=== PATIENT | female | born 1940 | race Caucasian/White ===

== ENCOUNTER → 2017-03-24 | Outpatient (CLI) | payer OTHER | LOC: PHRSP 07:16 | DX: J43.9 Emphysema, unspecified (principal) | CPT/HCPCS: 94060; 94726; 94729 ==

== ENCOUNTER 2017-04-15 05:33 | Inpatient (IN) | payer OTHER, MEDICARE ==
[~2017-04-15] VITALS: Ht 162.6 cm; Wt 50.0 kg
[2017-04-15] VITALS (12 sets, daily range): BP systolic 103–129; BP diastolic 58–61; PULSE 70–90; RESP 14–16; TEMP 98–98.9; O2SAT 95–99
[~2017-04-15 05:33] MED LIST: AMLO2.5T PO; ATEN25TA PO; ATOR10TA15 PO; LEVO75TA3 PO
[2017-04-15] MEDS ORDERED: SODIUM CHLORID 0.9% 500 ML IV PRN (06:15)
[2017-04-15] MEDS ORDERED: POVIDONE IODINE 5% (ANTISEPSIS KIT) 4 APPLICATIONS EACH NARE PRN (06:15)
[2017-04-15] MEDS ORDERED: CHLORHEXIDINE GLUCONATE 2 % 1 PACK (2 CLOTHS) TOPICAL PRN (06:15)
[2017-04-15] MEDS ORDERED: METOPROLOL TARTRATE 25 MG TAB PO PRN (06:15)
[2017-04-15] MEDS: LACTATED RINGER'S 1000 ML IV PRN ×2 (06:35→11:25)
[2017-04-15] MEDS ORDERED: VANCOMYCIN HCL 1000 MG VIAL ONE (07:31)
[2017-04-15] MEDS ORDERED: BUPIVACAINE LIPOSO PF 1.3% INJ 20 ML, DEXAMETHASONE INJ 4 MG, MORPHINE INJ 8 MG in SODI... IRRIGATION SCH (07:45)
[2017-04-15] MEDS ORDERED: NALOXONE HCL 0.4 MG/ML AMP IV PUSH PRN (11:00)
[2017-04-15] MEDS ORDERED: SODIUM CHLORIDE 0.9% FLUSH 10 ML FLUSH IV FLUSH PRN (11:00)
[2017-04-15] MEDS ORDERED: Post-op Orders (for Pharmacy) OTHER ONE (11:00)
[2017-04-15] MEDS ORDERED: RESP: ALBUTEROL 2.5 MG/3 ML NEB (PRN) NEB (11:00)
[2017-04-15] MEDS ORDERED: ACETAMINOPHEN 325 MG TAB PO PRN (11:00)
[2017-04-15] MEDS ORDERED: MAGNESIUM HYDROXIDE SUSP 30 ML CUP PO PRN (11:00)
[2017-04-15] MEDS ORDERED: MORPHINE SULFATE 30 MG/30 ML PCA IV SCH (11:00)
--- NOTE | 2017-04-15 11:08 | PD.OP ---
cc: Audra Barrow MD; Sacha Whitney MD Operative Report Date of Surgery: Apr 15, 2017 Preoperative Diagnosis: Postoperative Diagnosis: Procedure: 1. Right Video Assisted Thoracoscopsy (VATS) 2. Wedge Resection RUL Nodule 3. Right Posterolateral Muscle Sparing Thoracotomy 4. Right Upper Lobectomy 5. Mediastinal Lymph Node Dissection 6. Lysis of Adhesions 7. Intercostal Nerve Block . Surgeon: Audra Barrow Chip Mixer(s): Arjun Wood Operation and Findings: PREOPERATIVE DIAGNOSIS 1. Right Lung Nodule 2. COPD 3. Chronic Kidney Disease 4. Chronic Nicotine Use POSTOPERATIVE DIAGNOSIS 1. Right Upper Lobe Lung Nodule Suspicious for Cancer 2. COPD 3. Chronic Kidney Disease 4.Adhesions PROCEDURES 1. Right Video Assisted Thoracoscopsy (VATS) 2. Wedge Resection RUL Nodule 3. Right Posterolateral Muscle Sparing Thoracotomy 4. Right Upper Lobectomy 5. Mediastinal Lymph Node Dissection 6. Lysis of Adhesions 7. Intercostal Nerve Block SURGEON Audra Barrow MD WATER POLLUTION CONTROL INSPECTOR Debbie Wood PA-C ANESTHESIA General double-lumen endotracheal. HOUSECALLS NURSE WESLEY Banks MD DRAINS [address] COUNTS Needle, sponge, and instrument counts were correct. COMPLICATIONS None. INDICATION FOR PROCEDURE The patient is a 77 yo lady with right upper lung PET-positive lesion presenting for surgical resection of above pathology. DESCRIPTION OF PROCEDURE The patient was brought to the operating suite and placed in supine position. Following satisfactory induction of general double-lumen endotracheal anesthesia , the patient was placed in the left lateral decubitus position. The right chest and surrounding area was then prepped and draped in the usual sterile fashion. A 5 mm port was placed in the mid-axillary line 6th ICS. Two additional ports, one anterior and one posterior were placed. The RUL had adhesions to the apex and mediastinum which were divided sharply and the lung freed. A wedge resection of the upper lobe was performed incorporating the lesion and sent for histological analysis. Frozen section was suspicious but not confirmatory of an underlying malignancy. Given this, plans were made to proceed with a formal upper lobectomy. The ports were removed and the three incisions connected. A standard muscle-sparing posterolateral thoracotomy was performed and the serratus anterior muscle spared. The pleural space was entered. The inferior pulmonary ligament was divided. The pulmonary arterial supply to the upper lobe was identified, dissected free and divided as was the pulmonary venous supply. The bronchus was then dissected free, clamped and the remaining lung was insufflated without any difficulty. Lymph node dissections of level 3, 4, 7, 9 and 10 were performed along with the course of this removal. Some of these were retained with the specimen. Specimen was removed from the chest. The remaining lung was submerged under sterile water and inflated. No air leaks were identified. At this point the closure was undertaken. A [place] chest tube was placed. Intercostal nerve block was performed at the level of the incision and 3 rib spaces above and below using Exparel with Decadron solution. The pericostal space was approximated with interrupted #1 Vicryl sutures in a pericostal fashion. The serratus fascia and Latissimus dorsi were closed with running 0-Vicryl and the remaining wounds closed with 3-0, and 4-0 Monocryl. The patient tolerated the procedure well and postoperatively went to the PACU in stable condition. Audra Barrow MD Apr 15, 2017 11:08
[2017-04-15] MEDS ORDERED: *RESP: ALBUTEROL 2.5 MG/3 ML NEB (PRN) PERIprocedural Use ONLY NEB ONE (11:35)
[2017-04-15] MEDS ORDERED: fentaNYL CITRATE 1000 MCG/20 ML VIAL ONE (11:52)
[2017-04-15] MEDS ORDERED: MIDAZOLAM HCL 2 MG/2 ML VIAL ONE (11:52)
[2017-04-15] MEDS ORDERED: NS 500 ML (EXCEL BAG) INJ 500 ML IV ONE (12:00)
[2017-04-15] MEDS ORDERED: ePHEDrine/NS 25 MG/5 ML SYRINGE IV ONE (12:00)
[2017-04-15] MEDS: KETOROLAC TROMETHAMINE 30 MG/ML (IVP) VIAL IV PUSH SCH ×3 (12:00→23:46)
[2017-04-15] MEDS ORDERED: ROCURONIUM INJ 50 MG/5 ML SYRINGE IV PUSH ONE (12:00)
[2017-04-15] MEDS ORDERED: DEXAMETHASONE SOD PHOS 4 MG/ML VIAL IV ONE (12:00)
[2017-04-15] MEDS ORDERED: ONDANSETRON HCL 4 MG/2 ML VIAL IV ONE (12:00)
[2017-04-15] MEDS ORDERED: GLYCOPYRROLATE 1 MG/5 ML SYRINGE IV PUSH ONE (12:00)
[2017-04-15] MEDS ORDERED: PROPOFOL 200 MG/20 ML AMP IV ONE (12:00)
[2017-04-15] MEDS ORDERED: STERILE WATER FOR INJECTION 20 ML VIAL IV ONE (12:00)
[2017-04-15] MEDS ORDERED: NEOSTIGMINE 5 MG/5 ML SYRINGE IV PUSH ONE (12:00)
[2017-04-15] MEDS ORDERED: LACTATED RINGER'S 1000 ML INJ 1,000 ML IV ONE (12:00)
[2017-04-15] MEDS ORDERED: METOPROLOL TARTRATE 5 MG/5 ML VIAL IV ONE (12:00)
[2017-04-15] MEDS: ACETAMINOPHEN 1000 MG/100 ML 100 ML IV SCH ×3 (12:00→23:48)
[2017-04-15] MEDS ORDERED: PHENYLEPH/NS 1000 MCG/10 ML SYR IV ONE (12:00)
[2017-04-15] MEDS ORDERED: NORMOSOL R INJ 1,000 ML IV ONE (12:00)
[2017-04-15] MEDS ORDERED: SUCCINYLCHOLINE CHLORIDE 100 MG/5 ML SYRINGE IV PUSH ONE (12:00)
[2017-04-15] MEDS ORDERED: LIDOCAINE HCL 1% PF 5 ML SYRINGE OTHER ONE (12:00)
[2017-04-15] MEDS ORDERED: SODIUM CHLOR 0.9% 250 ML INJ 250 ML IV ONE (12:00)
--- NOTE | 2017-04-15 12:17 | RADRPT ---
EXAM DATE/TIME: 04/15/2017 11:42 [facility] COMPARISON: CHEST SINGLE AP, February 14, 2016, 10:27. INDICATIONS : S/p right side lobectomy MEDICAL HISTORY : Hypertension. renal insufficiency SURGICAL HISTORY : None. ENCOUNTER: Initial ACUITY: 1 day PAIN SCORE: Non-responsive. LOCATION: Right chest FINDINGS: Right chest drainage tube in place with the tip at the right apex. There is a tiny pneumothorax in la teral apex measuring 4 mm.. Surgical resection of a portion of the posterior right sixth rib. The hea rt is normal size. No focal areas of consolidation seen. There is some mild opacity in the region of the left costophrenic angle suggesting either atelectasis or small pleural effusion. Mild amount subc utaneous emphysema about the right chest wall. CONCLUSION: Postsurgical changes in the right chest with chest tube in place and tiny right upper chest pneumotho rax. Possible atelectasis or pleural effusion in the left costophrenic angle. Jakob Ricci MD on April 15, 2017 at 12:12 Board Certified Radiologist. This report was verified electronically.
[2017-04-15] MEDS: PCA - TOTAL MG MORPHINE DELIVERED PER SHIFT SCH ×2 (14:00→21:48)
[2017-04-15] MEDS ORDERED: DO NOT ADM ANY ANTICOAGULANT DRUGS PRN (14:45)
[2017-04-15] MEDS: LACTATED RINGER'S 1000 ML INJ 1,000 ML IV SCH (14:45)
[2017-04-15] MEDS: RESP: ALBUTEROL 2.5 MG/3 ML NEB (SCH) NEB ×2 (16:10→20:14)
[2017-04-15] MEDS ORDERED: VANCOMYCIN INJ 1 GM in SODIUM CHLORIDE 0.9% INJ 250 ML IV SCH (20:00)
[2017-04-15] MEDS: VANCOMYCIN 1 GM/200 ML INJ 200 ML IV SCH (20:41)
[2017-04-15] MEDS: ATORVASTATIN 10 MG TAB PO SCH (21:38)
[2017-04-15] MEDS: DOCUSATE CALCIUM 240 MG CAP PO SCH (21:38)
[2017-04-15] MEDS: PANTOPRAZOLE SOD 40 MG DELAYED RELEASE TAB PO SCH (21:38)
[2017-04-15] MEDS: SODIUM CHLORIDE 0.9% FLUSH 10 ML FLUSH IV FLUSH SCH (21:39)
[2017-04-16] VITALS (24 sets, daily range): BP systolic 118–156; BP diastolic 63–80; PULSE 62–97; RESP 18–20; TEMP 98–99.1; O2SAT 88–98
[2017-04-16] MEDS: RESP: ALBUTEROL 2.5 MG/3 ML NEB (SCH) NEB ×4 (02:40→21:35)
--- NOTE | 2017-04-16 04:41 | RADRPT ---
EXAM DATE/TIME: 04/16/2017 04:05 [facility] COMPARISON: CHEST SINGLE AP, April 15, 2017, 11:42. INDICATIONS : Short of breath. MEDICAL HISTORY : Hypertension. renal insufficiency SURGICAL HISTORY : None. ENCOUNTER: Subsequent ACUITY: 1 week PAIN SCORE: 0/10 LOCATION: Bilateral chest FINDINGS: Portable AP view of the chest demonstrates a normal-sized cardiac silhouette. Right chest tube remain s present and no pneumothorax is visualized. There is mild right chest wall soft tissue air. Slight b lunting of the left costophrenic sulcus is stable. No airspace consolidation is appreciated. CONCLUSION: 1. Right chest tube remains present and no pneumothorax is visualized. 2. Mild atelectasis at the lung bases with possible small left pleural effusion. Crispin Camarillo MD on April 16, 2017 at 4:39 Board Certified Radiologist. This report was verified electronically.
[2017-04-16 04:47] LABS: AUTOMATED NEUTROPHIL # 10.1 TH/MM3 (1.8-7.7); BASOPHIL % 0.2 % (0.0-2.0); HEMATOCRIT 38.9 % (35.0-46.0); HEMOGLOBIN 13.2 GM/DL (11.6-15.3); LYMPH % 8.4 % (9.0-44.0); MEAN CELL VOLUME 92.6 FL (80.0-100.0); MEAN CORPUSCULAR HEMOGLOBIN 31.5 PG (27.0-34.0); MEAN PLATELET VOLUME 8.2 FL (7.0-11.0); MONO % 4.6 % (0.0-8.0); MONOCYTE # 0.5 TH/MM3 (0-0.9); NEUT % 86.8 % (16.0-70.0); PLATELET COUNT 293 TH/MM3 (150-450); RED CELL DISTRIBUTION WIDTH 14.2 % (11.6-17.2); WHITE BLOOD COUNT 11.7 TH/MM3 (4.0-11.0)
[2017-04-16 05:10] LABS: BICARBONATE 22.8 MEQ/L (21.0-32.0); CALCIUM 8.4 MG/DL (8.5-10.1); CREATININE 0.94 MG/DL (0.50-1.00)
[2017-04-16] MEDS: PCA - TOTAL MG MORPHINE DELIVERED PER SHIFT SCH ×3 (06:00→22:00)
[2017-04-16] MEDS: KETOROLAC TROMETHAMINE 30 MG/ML (IVP) VIAL IV PUSH SCH (06:00)
[2017-04-16] MEDS: LEVOTHYROXINE SODIUM 75 MCG TAB PO SCH (06:10)
[2017-04-16] MEDS: ACETAMINOPHEN 1000 MG/100 ML 100 ML IV SCH (06:11)
[2017-04-16] MEDS: amLODIPine BESYLATE 5 MG TAB PO SCH (08:38)
[2017-04-16] MEDS: ATENOLOL 25 MG TAB PO SCH (08:38)
[2017-04-16] MEDS: SODIUM CHLORIDE 0.9% FLUSH 10 ML FLUSH IV FLUSH SCH ×2 (08:39→20:59)
[2017-04-16] MEDS: VANCOMYCIN 1 GM/200 ML INJ 200 ML IV SCH (08:44)
--- NOTE | 2017-04-16 09:58 | PD.CAR.PN ---
CVT Progress Note Subjective/Hospital Course: 77 yo female with right upper lobe lung mass which has increased in size presenting for surgical resection 04/15 PROCEDURES 1. Right Video Assisted Thoracoscopsy (VATS) 2. Wedge Resection RUL Nodule 3. Right Posterolateral Muscle Sparing Thoracotomy 4. Right Upper Lobectomy 5. Mediastinal Lymph Node Dissection 6. Lysis of Adhesions 7. Intercostal Nerve Block 04/16 Doing well Incisional pain No air-leak Likely D/C CT tomorrow Discharge planning Pathology pending Objective: Vital Signs Date Time Temp Pulse Resp B/P (MAP) Pulse Ox O2 Delivery O2 Flow Rate FiO2 04/16/17 09:27 81 04/16/17 08:30 79 04/16/17 08:30 98.5 82 20 139/63 (88) 93 04/16/17 06:42 22 04/16/17 06:00 83 04/16/17 06:00 18 04/16/17 05:00 80 04/16/17 04:00 81 04/16/17 03:00 98.5 88 118/63 (81) 93 04/16/17 03:00 82 04/16/17 02:00 78 04/16/17 01:00 78 04/16/17 00:00 78 04/15/17 23:00 78 04/15/17 23:00 98.0 80 114/59 (77) 96 04/15/17 22:00 82 04/15/17 21:48 18 04/15/17 21:00 90 04/15/17 20:00 80 04/15/17 19:00 80 04/15/17 19:00 98.6 79 103/58 (73) 95 04/15/17 18:00 78 04/15/17 17:00 76 04/15/17 16:10 97 Nasal Cannula 1.00 04/15/17 16:00 73 04/15/17 15:00 98.3 72 14 113/61 (78) 96 04/15/17 15:00 73 04/15/17 14:00 72 04/15/17 14:00 14 04/15/17 13:00 98.9 73 16 129/61 (83) 99 04/15/17 13:00 70 04/15/17 12:30 97.6 78 18 110/59 (76) 99 Nasal Cannula 2 04/15/17 12:15 72 21 112/61 (78) 99 Nasal Cannula 2 04/15/17 12:00 71 13 124/68 (86) 98 Nasal Cannula 2 04/15/17 11:45 68 14 118/66 (83) 98 Nasal Cannula 2 04/15/17 11:30 67 19 119/63 (81) 100 Nasal Cannula 2 04/15/17 11:25 14 04/15/17 11:15 97.5 64 19 119/58 (78) 100 Nasal Cannula 4 Labs: Laboratory Tests Test 04/16/17 03:19 White Blood Count 11.7 TH/MM3 (4.0-11.0) Red Blood Count 4.20 MIL/MM3 (4.00-5.30) Hemoglobin 13.2 GM/DL (11.6-15.3) Hematocrit 38.9 % (35.0-46.0) Mean Corpuscular Volume 92.6 FL (80.0-100.0) Mean Corpuscular Hemoglobin 31.5 PG (27.0-34.0) Mean Corpuscular Hemoglobin Concent 34.0 % (32.0-36.0) Red Cell Distribution Width 14.2 % (11.6-17.2) Platelet Count 293 TH/MM3 (150-450) Mean Platelet Volume 8.2 FL (7.0-11.0) Neutrophils (%) (Auto) 86.8 % (16.0-70.0) Lymphocytes (%) (Auto) 8.4 % (9.0-44.0) Monocytes (%) (Auto) 4.6 % (0.0-8.0) Eosinophils (%) (Auto) 0.0 % (0.0-4.0) Basophils (%) (Auto) 0.2 % (0.0-2.0) Neutrophils # (Auto) 10.1 TH/MM3 (1.8-7.7) Lymphocytes # (Auto) 1.0 TH/MM3 (1.0-4.8) Monocytes # (Auto) 0.5 TH/MM3 (0-0.9) Eosinophils # (Auto) 0.0 TH/MM3 (0-0.4) Basophils # (Auto) 0.0 TH/MM3 (0-0.2) CBC Comment DIFF FINAL Differential Comment Blood Urea Nitrogen 19 MG/DL (7-18) Creatinine 0.94 MG/DL (0.50-1.00) Random Glucose 149 MG/DL (74-106) Calcium Level 8.4 MG/DL (8.5-10.1) Sodium Level 139 MEQ/L (136-145) Potassium Level 3.8 MEQ/L (3.5-5.1) Chloride Level 107 MEQ/L (98-107) Carbon Dioxide Level 22.8 MEQ/L (21.0-32.0) Anion Gap 9 MEQ/L (5-15) Estimat Glomerular Filtration Rate 58 ML/MIN (>89) Result Diagram: 04/16/1731804/16/17318 (1) Lung cancer, upper lobe (2) S/P lobectomy of lung (3) COPD (chronic obstructive pulmonary disease) Problem Qualifiers (1) Lung cancer, upper lobe: Qualified Codes: C34.11 - Malignant neoplasm of upper lobe, right bronchus or lung Audra Barrow MD Apr 16, 2017 09:58
--- NOTE | 2017-04-16 09:59 | HHI.FF ---
Face to Face Verification Diagnosis: (1) Lung cancer, upper lobe (2) COPD (chronic obstructive pulmonary disease) (3) S/P lobectomy of lung Home Health Nursing Order: Medical education Wound care and dressing changes Nursing assessment with vital signs I have seen patient Jackie Ortiz on 04/16/17. My clinical findings support the need for the requested home health care services because: Deconditioned w/ increased weakness I certify that my clinical findings support that this patient is homebound because: Post-op weakness Audra Barrow MD Apr 16, 2017 09:59
[2017-04-16] MEDS ORDERED: HYDR-3516 PO (10:01)
[2017-04-16] MEDS ORDERED: DOCU1CAP26 PO (10:01)
[2017-04-16] MEDS: LACTATED RINGER'S 1000 ML INJ 1,000 ML IV SCH (13:42)
[2017-04-16] MEDS: ONDANSETRON HCL 4 MG/2 ML VIAL IV PUSH PRN (16:00)
[2017-04-16] MEDS ORDERED: traMADol HCL 50 MG TAB PO PRN (18:30)
[2017-04-16] MEDS: DOCUSATE CALCIUM 240 MG CAP PO SCH (20:59)
[2017-04-16] MEDS: ATORVASTATIN 10 MG TAB PO SCH (20:59)
[2017-04-16] MEDS: PANTOPRAZOLE SOD 40 MG DELAYED RELEASE TAB PO SCH (20:59)
[2017-04-17] VITALS (30 sets, daily range): BP systolic 121–146; BP diastolic 62–84; PULSE 70–88; RESP 16–18; TEMP 97.8–100.1; O2SAT 89–93
[2017-04-17] MEDS: LACTATED RINGER'S 1000 ML INJ 1,000 ML IV SCH ×2 (00:06→15:42)
[2017-04-17] MEDS: ACETAMINOPHEN/HYDROcodone 325 MG/5 MG TAB PO PRN ×4 (01:47→16:34)
[2017-04-17] MEDS: RESP: ALBUTEROL 2.5 MG/3 ML NEB (SCH) NEB ×4 (04:10→20:48)
[2017-04-17] MEDS: PCA - TOTAL MG MORPHINE DELIVERED PER SHIFT SCH ×3 (06:00→22:00)
[2017-04-17] MEDS: LEVOTHYROXINE SODIUM 75 MCG TAB PO SCH (06:06)
--- NOTE | 2017-04-17 08:58 | PD.CAR.PN ---
CVT Progress Note Subjective/Hospital Course: 77 yo female with right upper lobe lung mass which has increased in size presenting for surgical resection 04/15 PROCEDURES 1. Right Video Assisted Thoracoscopsy (VATS) 2. Wedge Resection RUL Nodule 3. Right Posterolateral Muscle Sparing Thoracotomy 4. Right Upper Lobectomy 5. Mediastinal Lymph Node Dissection 6. Lysis of Adhesions 7. Intercostal Nerve Block 04/16 Doing well Incisional pain No air-leak Likely D/C CT tomorrow Discharge planning Pathology pending 04/17 On O2. Weaning as tolerated Gentle diuresis Remove CT today Likely D/C home in am Pathology pending Objective: Vital Signs Date Time Temp Pulse Resp B/P (MAP) Pulse Ox O2 Delivery O2 Flow Rate FiO2 04/17/17 08:00 76 04/17/17 07:48 97.8 78 16 121/72 (88) 92 04/17/17 07:48 92 Nasal Cannula 6.00 Humidified 04/17/17 07:00 80 04/17/17 06:00 85 04/17/17 05:00 86 04/17/17 04:28 91 Nasal Cannula 4.00 04/17/17 04:00 83 04/17/17 03:03 16 04/17/17 03:00 98.8 83 145/84 (104) 90 04/17/17 03:00 90 Nasal Cannula 4.00 04/17/17 03:00 79 04/17/17 02:00 80 04/17/17 01:00 85 04/17/17 00:00 86 04/16/17 23:00 87 04/16/17 23:00 98.7 132/70 (90) 88 04/16/17 23:00 91 Nasal Cannula 4.00 04/16/17 22:00 89 04/16/17 22:00 16 04/16/17 21:30 21 04/16/17 21:00 86 04/16/17 20:00 80 04/16/17 19:40 16 04/16/17 19:00 82 04/16/17 19:00 92 Nasal Cannula 4.00 04/16/17 19:00 99.1 87 140/75 (96) 92 04/16/17 18:02 83 04/16/17 17:01 86 04/16/17 16:02 87 04/16/17 15:59 77 04/16/17 15:59 98.0 74 18 156/80 (105) 98 04/16/17 15:59 98 Nasal Cannula 2.00 04/16/17 14:02 75 04/16/17 13:41 16 04/16/17 13:28 74 04/16/17 12:02 80 04/16/17 11:40 75 04/16/17 11:40 92 Room Air 04/16/17 11:40 98.3 76 18 147/70 (95) 94 04/16/17 10:39 93 21 04/16/17 10:10 97 04/16/17 09:27 81 Result Diagram: 04/16/1731804/16/17318 (1) Lung cancer, upper lobe (2) S/P lobectomy of lung (3) COPD (chronic obstructive pulmonary disease) Problem Qualifiers (1) Lung cancer, upper lobe: Qualified Codes: C34.11 - Malignant neoplasm of upper lobe, right bronchus or lung Audra Barrow MD Apr 17, 2017 08:58
[2017-04-17] MEDS: SODIUM CHLORIDE 0.9% FLUSH 10 ML FLUSH IV FLUSH SCH ×2 (09:06→20:59)
[2017-04-17] MEDS: ATENOLOL 25 MG TAB PO SCH (09:06)
[2017-04-17] MEDS: amLODIPine BESYLATE 5 MG TAB PO SCH (09:06)
[2017-04-17] MEDS ORDERED: FUROSEMIDE 40 MG/4 ML VIAL IV PUSH ONE (11:00)
[2017-04-17] MEDS: ATORVASTATIN 10 MG TAB PO SCH (20:58)
[2017-04-17] MEDS: PANTOPRAZOLE SOD 40 MG DELAYED RELEASE TAB PO SCH (20:58)
[2017-04-17] MEDS: DOCUSATE CALCIUM 240 MG CAP PO SCH (20:59)
[2017-04-17] MEDS: ONDANSETRON HCL 4 MG/2 ML VIAL IV PUSH PRN (23:55)
[2017-04-18] VITALS (30 sets, daily range): BP systolic 100–145; BP diastolic 55–79; PULSE 68–114; RESP 16–18; TEMP 97.9–99.8; O2SAT 90–94
[2017-04-18] MEDS: RESP: ALBUTEROL 2.5 MG/3 ML NEB (SCH) NEB ×4 (04:44→20:41)
[2017-04-18] MEDS: LEVOTHYROXINE SODIUM 75 MCG TAB PO SCH (05:52)
[2017-04-18] MEDS: PCA - TOTAL MG MORPHINE DELIVERED PER SHIFT SCH ×3 (05:54→20:45)
[2017-04-18] MEDS: ACETAMINOPHEN/HYDROcodone 325 MG/5 MG TAB PO PRN ×4 (06:06→18:11)
[2017-04-18] MEDS: ATENOLOL 25 MG TAB PO SCH (07:17)
[2017-04-18] MEDS: amLODIPine BESYLATE 5 MG TAB PO SCH (09:41)
[2017-04-18] MEDS: SODIUM CHLORIDE 0.9% FLUSH 10 ML FLUSH IV FLUSH SCH ×2 (09:42→20:42)
--- NOTE | 2017-04-18 12:20 | PD.CAR.PN ---
CVT Progress Note Subjective/Hospital Course: 77 yo female with right upper lobe lung mass which has increased in size presenting for surgical resection 04/15 PROCEDURES 1. Right Video Assisted Thoracoscopsy (VATS) 2. Wedge Resection RUL Nodule 3. Right Posterolateral Muscle Sparing Thoracotomy 4. Right Upper Lobectomy 5. Mediastinal Lymph Node Dissection 6. Lysis of Adhesions 7. Intercostal Nerve Block 04/16 Doing well Incisional pain No air-leak Likely D/C CT tomorrow Discharge planning Pathology pending 04/17 On O2. Weaning as tolerated Gentle diuresis Remove CT today Likely D/C home in am Pathology pending 04/18 Weaning oxygen as tolerated Ambulate CXR and labs in am Objective: Vital Signs Date Time Temp Pulse Resp B/P (MAP) Pulse Ox O2 Delivery O2 Flow Rate FiO2 04/18/17 11:25 91 Nasal Cannula 5.00 Humidified 04/18/17 11:25 98.2 72 16 100/55 (70) 91 04/18/17 10:09 93 Nasal Cannula 5.00 04/18/17 08:13 97.9 84 16 113/69 (84) 92 04/18/17 08:13 92 Nasal Cannula 5.00 Humidified 04/18/17 07:10 16 04/18/17 06:00 92 04/18/17 05:54 18 04/18/17 05:00 96 04/18/17 04:00 82 04/18/17 03:00 83 04/18/17 03:00 92 Nasal Cannula 5.00 Humidified 04/18/17 03:00 99.8 81 18 145/79 (101) 93 04/18/17 02:00 83 04/18/17 01:00 84 04/18/17 00:00 92 04/17/17 23:00 100.1 85 16 146/79 (101) 93 04/17/17 23:00 93 Nasal Cannula 5.00 Humidified 04/17/17 23:00 86 04/17/17 22:00 88 04/17/17 22:00 19 04/17/17 21:00 86 04/17/17 20:48 90 Nasal Cannula 5.00 04/17/17 20:00 78 04/17/17 19:00 88 04/17/17 19:00 98.7 87 18 131/62 (85) 92 04/17/17 19:00 92 Nasal Cannula 5.00 Humidified 04/17/17 18:00 78 04/17/17 17:00 80 04/17/17 16:14 81 04/17/17 15:14 92 Nasal Cannula 5.00 Humidified 04/17/17 15:14 98.8 74 16 133/76 (95) 89 04/17/17 15:00 74 04/17/17 14:00 72 04/17/17 13:00 70 Result Diagram: 04/16/1731804/16/17318 (1) Lung cancer, upper lobe (2) S/P lobectomy of lung (3) COPD (chronic obstructive pulmonary disease) Problem Qualifiers (1) Lung cancer, upper lobe: Qualified Codes: C34.11 - Malignant neoplasm of upper lobe, right bronchus or lung Audra Barrow MD Apr 18, 2017 12:20
[2017-04-18] MEDS: LACTATED RINGER'S 1000 ML INJ 1,000 ML IV SCH (14:45)
[2017-04-18] MEDS: PANTOPRAZOLE SOD 40 MG DELAYED RELEASE TAB PO SCH (20:41)
[2017-04-18] MEDS: ATORVASTATIN 10 MG TAB PO SCH (20:41)
[2017-04-18] MEDS: DOCUSATE CALCIUM 240 MG CAP PO SCH (20:42)
[2017-04-19] VITALS (27 sets, daily range): BP systolic 108–124; BP diastolic 62–76; PULSE 68–100; RESP 12–20; TEMP 98–99.3; O2SAT 91–93
[2017-04-19] MEDS: RESP: ALBUTEROL 2.5 MG/3 ML NEB (SCH) NEB ×2 (03:32→12:18)
[2017-04-19 04:47] LABS: HEMATOCRIT 39.1 % (35.0-46.0); HEMOGLOBIN 13.2 GM/DL (11.6-15.3); MEAN CELL VOLUME 93.2 FL (80.0-100.0); MEAN CORPUSCULAR HEMOGLOBIN 31.4 PG (27.0-34.0); MEAN CORPUSCULAR HGB CONC 33.7 % (32.0-36.0); MEAN PLATELET VOLUME 8.5 FL (7.0-11.0); PLATELET COUNT 310 TH/MM3 (150-450); RED CELL DISTRIBUTION WIDTH 14.2 % (11.6-17.2); WHITE BLOOD COUNT 13.1 TH/MM3 (4.0-11.0)
[2017-04-19 05:12] LABS: BICARBONATE 31.5 MEQ/L (21.0-32.0); CALCIUM 8.6 MG/DL (8.5-10.1); CREATININE 0.86 MG/DL (0.50-1.00)
[2017-04-19] MEDS: LEVOTHYROXINE SODIUM 75 MCG TAB PO SCH (06:00)
[2017-04-19] MEDS: ACETAMINOPHEN/HYDROcodone 325 MG/5 MG TAB PO PRN ×3 (06:36→19:07)
--- NOTE | 2017-04-19 07:56 | PD.CAR.PN ---
CVT Progress Note Subjective/Hospital Course: 77 yo female with right upper lobe lung mass which has increased in size presenting for surgical resection 04/15 PROCEDURES 1. Right Video Assisted Thoracoscopsy (VATS) 2. Wedge Resection RUL Nodule 3. Right Posterolateral Muscle Sparing Thoracotomy 4. Right Upper Lobectomy 5. Mediastinal Lymph Node Dissection 6. Lysis of Adhesions 7. Intercostal Nerve Block 04/16 Doing well Incisional pain No air-leak Likely D/C CT tomorrow Discharge planning Pathology pending 04/17 On O2. Weaning as tolerated Gentle diuresis Remove CT today Likely D/C home in am Pathology pending 04/18 Weaning oxygen as tolerated Ambulate CXR and labs in am 04/19 Doing well clinically Still on Oxygen. Weaning as tolerated. CXR today K replacement Objective: Vital Signs Date Time Temp Pulse Resp B/P (MAP) Pulse Ox O2 Delivery O2 Flow Rate FiO2 04/19/17 02:00 77 04/19/17 01:00 77 04/19/17 00:00 98.7 83 20 124/70 (88) 91 04/19/17 00:00 96 04/18/17 23:08 91 Nasal Cannula 4.00 Humidified 04/18/17 23:00 75 04/18/17 22:00 75 04/18/17 21:00 77 04/18/17 20:45 90 Nasal Cannula 4.00 04/18/17 20:45 20 04/18/17 20:00 91 Nasal Cannula 4.00 Humidified 04/18/17 20:00 74 04/18/17 19:50 98.5 74 18 101/58 (72) 91 04/18/17 19:00 78 04/18/17 18:05 82 04/18/17 17:21 75 04/18/17 16:00 68 04/18/17 15:15 92 Nasal Cannula 4.00 Humidified 04/18/17 15:15 98.0 68 16 100/56 (71) 94 04/18/17 15:00 69 04/18/17 14:00 76 04/18/17 13:05 76 04/18/17 12:00 68 04/18/17 11:25 91 Nasal Cannula 5.00 Humidified 04/18/17 11:25 98.2 72 16 100/55 (70) 91 04/18/17 11:00 68 04/18/17 10:09 93 Nasal Cannula 5.00 04/18/17 10:00 68 04/18/17 09:00 74 04/18/17 08:13 97.9 84 16 113/69 (84) 92 04/18/17 08:13 92 Nasal Cannula 5.00 Humidified 04/18/17 08:00 84 Labs: Laboratory Tests Test 04/19/17 03:29 White Blood Count 13.1 TH/MM3 (4.0-11.0) Red Blood Count 4.20 MIL/MM3 (4.00-5.30) Hemoglobin 13.2 GM/DL (11.6-15.3) Hematocrit 39.1 % (35.0-46.0) Mean Corpuscular Volume 93.2 FL (80.0-100.0) Mean Corpuscular Hemoglobin 31.4 PG (27.0-34.0) Mean Corpuscular Hemoglobin Concent 33.7 % (32.0-36.0) Red Cell Distribution Width 14.2 % (11.6-17.2) Platelet Count 310 TH/MM3 (150-450) Mean Platelet Volume 8.5 FL (7.0-11.0) Blood Urea Nitrogen 14 MG/DL (7-18) Creatinine 0.86 MG/DL (0.50-1.00) Random Glucose 108 MG/DL (74-106) Calcium Level 8.6 MG/DL (8.5-10.1) Sodium Level 139 MEQ/L (136-145) Potassium Level 3.7 MEQ/L (3.5-5.1) Chloride Level 100 MEQ/L (98-107) Carbon Dioxide Level 31.5 MEQ/L (21.0-32.0) Anion Gap 8 MEQ/L (5-15) Estimat Glomerular Filtration Rate 64 ML/MIN (>89) Result Diagram: 04/19/17 0329 04/19/17 0329 (1) Lung cancer, upper lobe (2) S/P lobectomy of lung (3) COPD (chronic obstructive pulmonary disease) Problem Qualifiers (1) Lung cancer, upper lobe: Qualified Codes: C34.11 - Malignant neoplasm of upper lobe, right bronchus or lung Audra Barrow MD Apr 19, 2017 07:56
--- NOTE | 2017-04-19 08:38 | RADRPT ---
EXAM DATE/TIME: 04/19/2017 08:18 [facility] COMPARISON: CHEST SINGLE AP, April 16, 2017, 4:05. INDICATIONS : Post op right lobectomy MEDICAL HISTORY : Hypertension. renal insufficiency SURGICAL HISTORY : None. ENCOUNTER: Initial ACUITY: 1 day PAIN SCORE: 0/10 LOCATION: Right chest FINDINGS: There is almost complete opacification of the right hemithorax with minimal aeration identified withi n the upper portion of the right hemithorax. The trachea is mildly deviated to the right. The mediast inum also appears shifted rightward. The left hemithorax is clear. CONCLUSION: Interval right lobectomy with almost complete opacification of the right hemithorax with mild shift o f the mediastinum towards the right. The left hemithorax remains clear. Maci Brooks MD on April 19, 2017 at 8:33 Board Certified Radiologist. This report was verified electronically.
[2017-04-19] MEDS ORDERED: FUROSEMIDE 40 MG/4 ML VIAL IV PUSH ONE (09:00)
[2017-04-19] MEDS: POTASSIUM CHLORIDE 20 MEQ CONTROLLED RELEASE TAB PO SCH ×2 (09:13→21:52)
[2017-04-19] MEDS: amLODIPine BESYLATE 5 MG TAB PO SCH (09:14)
[2017-04-19] MEDS: ATENOLOL 25 MG TAB PO SCH (09:14)
[2017-04-19] MEDS: SODIUM CHLORIDE 0.9% FLUSH 10 ML FLUSH IV FLUSH SCH ×2 (09:15→21:00)
[2017-04-19] MEDS: PCA - TOTAL MG MORPHINE DELIVERED PER SHIFT SCH ×2 (14:00→22:00)
[2017-04-19] MEDS: LACTATED RINGER'S 1000 ML INJ 1,000 ML IV SCH (14:45)
[2017-04-19] MEDS: DOCUSATE CALCIUM 240 MG CAP PO SCH (21:52)
[2017-04-19] MEDS: PANTOPRAZOLE SOD 40 MG DELAYED RELEASE TAB PO SCH (21:52)
[2017-04-19] MEDS: ATORVASTATIN 10 MG TAB PO SCH (21:52)
[2017-04-20] VITALS (27 sets, daily range): BP systolic 102–129; BP diastolic 56–69; PULSE 64–86; RESP 14–18; TEMP 97.9–98.8; O2SAT 91–95
[2017-04-20] MEDS: LEVOTHYROXINE SODIUM 75 MCG TAB PO SCH (06:00)
[2017-04-20] MEDS: PCA - TOTAL MG MORPHINE DELIVERED PER SHIFT SCH (06:00)
--- NOTE | 2017-04-20 07:02 | PD.CAR.PN ---
CVT Progress Note Subjective/Hospital Course: 77 yo female with right upper lobe lung mass which has increased in size presenting for surgical resection 04/15 PROCEDURES 1. Right Video Assisted Thoracoscopsy (VATS) 2. Wedge Resection RUL Nodule 3. Right Posterolateral Muscle Sparing Thoracotomy 4. Right Upper Lobectomy 5. Mediastinal Lymph Node Dissection 6. Lysis of Adhesions 7. Intercostal Nerve Block 04/16 Doing well Incisional pain No air-leak Likely D/C CT tomorrow Discharge planning Pathology pending 04/17 On O2. Weaning as tolerated Gentle diuresis Remove CT today Likely D/C home in am Pathology pending 04/18 Weaning oxygen as tolerated Ambulate CXR and labs in am 04/19 Doing well clinically Still on Oxygen. Weaning as tolerated. CXR today K replacement 04/20 Right Lung atelectasis on CXR Needs aggressive pulmonary toiletry and ambulation Repeat CXR in am, if no improvement may need bronchoscopy Pathology d/w pt and daughter Objective: Vital Signs Date Time Temp Pulse Resp B/P (MAP) Pulse Ox O2 Delivery O2 Flow Rate FiO2 04/20/17 06:00 75 04/20/17 05:00 73 04/20/17 04:00 72 04/20/17 03:00 98.7 86 14 115/57 (76) 95 04/20/17 03:00 94 Nasal Cannula 3.00 04/20/17 03:00 70 04/20/17 02:00 72 04/20/17 01:00 70 04/20/17 00:00 70 04/19/17 23:00 93 Nasal Cannula 3.00 04/19/17 23:00 99.3 71 12 108/63 (78) 93 04/19/17 23:00 71 04/19/17 22:00 72 04/19/17 21:00 70 04/19/17 20:34 93 Nasal Cannula 3.00 04/19/17 20:07 14 04/19/17 20:00 78 04/19/17 19:00 92 Nasal Cannula 3.00 04/19/17 19:00 78 04/19/17 19:00 98.9 78 12 117/67 (84) 92 04/19/17 18:00 88 04/19/17 17:00 74 04/19/17 16:00 74 04/19/17 15:50 98.1 75 20 117/62 (80) 93 04/19/17 15:50 75 04/19/17 15:50 93 Nasal Cannula 3.00 04/19/17 15:00 68 04/19/17 14:00 70 04/19/17 14:00 18 04/19/17 13:00 74 04/19/17 12:00 71 04/19/17 12:00 98.0 76 18 117/62 (80) 93 04/19/17 12:00 92 Nasal Cannula 3.00 04/19/17 11:00 68 04/19/17 10:10 92 Nasal Cannula 3.00 04/19/17 10:00 76 04/19/17 09:00 78 04/19/17 08:00 76 Result Diagram: 04/19/17 0329 04/19/17 0329 (1) Lung cancer, upper lobe (2) S/P lobectomy of lung (3) COPD (chronic obstructive pulmonary disease) Problem Qualifiers (1) Lung cancer, upper lobe: Qualified Codes: C34.11 - Malignant neoplasm of upper lobe, right bronchus or lung Audra Barrow MD Apr 20, 2017 07:02
[2017-04-20] MEDS ORDERED: POTASSIUM CHLORIDE 10 MEQ CONTROLLED RELEASE TAB PO ONE (09:00)
[2017-04-20] MEDS: amLODIPine BESYLATE 5 MG TAB PO SCH (09:06)
[2017-04-20] MEDS: SODIUM CHLORIDE 0.9% FLUSH 10 ML FLUSH IV FLUSH SCH ×2 (09:06→21:00)
[2017-04-20] MEDS: ATENOLOL 25 MG TAB PO SCH (09:06)
[2017-04-20] MEDS: ACETAMINOPHEN/HYDROcodone 325 MG/5 MG TAB PO PRN (13:06)
[2017-04-20] MEDS: DOCUSATE CALCIUM 240 MG CAP PO SCH (21:46)
[2017-04-20] MEDS: ATORVASTATIN 10 MG TAB PO SCH (21:46)
[2017-04-20] MEDS: PANTOPRAZOLE SOD 40 MG DELAYED RELEASE TAB PO SCH (21:46)
[2017-04-21] VITALS (30 sets, daily range): BP systolic 117–135; BP diastolic 65–74; PULSE 40–75; RESP 16–20; TEMP 98–98.6; O2SAT 91–96
--- NOTE | 2017-04-21 05:19 | RADRPT ---
EXAM DATE/TIME: 04/21/2017 04:47 [facility] COMPARISON: CHEST PA & LAT, April 19, 2017, 8:18. CHEST SINGLE AP, April 16, 2017, 4:05. INDICATIONS : Post lobectomy, short of breath. MEDICAL HISTORY : Hypertension. renal insufficiency SURGICAL HISTORY : None. ENCOUNTER: Subsequent ACUITY: 1 week PAIN SCORE: 0/10 LOCATION: Bilateral chest FINDINGS: The patient is status post thoracotomy and right lung surgery with increasing opacification of the ri ght hemithorax, nearly completely opacified. There is atelectasis at the left lung base. CONCLUSION: Increasing opacification of the right hemithorax. Abel Orozco MD on April 21, 2017 at 5:16 Board Certified Radiologist. This report was verified electronically.
[2017-04-21] MEDS: LEVOTHYROXINE SODIUM 75 MCG TAB PO SCH (05:39)
--- NOTE | 2017-04-21 07:47 | PD.CAR.PN ---
CVT Progress Note Subjective/Hospital Course: 77 yo female with right upper lobe lung mass which has increased in size presenting for surgical resection 04/15 PROCEDURES 1. Right Video Assisted Thoracoscopsy (VATS) 2. Wedge Resection RUL Nodule 3. Right Posterolateral Muscle Sparing Thoracotomy 4. Right Upper Lobectomy 5. Mediastinal Lymph Node Dissection 6. Lysis of Adhesions 7. Intercostal Nerve Block 04/16 Doing well Incisional pain No air-leak Likely D/C CT tomorrow Discharge planning Pathology pending 04/17 On O2. Weaning as tolerated Gentle diuresis Remove CT today Likely D/C home in am Pathology pending 04/18 Weaning oxygen as tolerated Ambulate CXR and labs in am 04/19 Doing well clinically Still on Oxygen. Weaning as tolerated. CXR today K replacement 04/20 Right Lung atelectasis on CXR Needs aggressive pulmonary toiletry and ambulation Repeat CXR in am, if no improvement may need bronchoscopy Pathology d/w pt and daughter 04/21 Right lung collapse Will need bronchoscopy with lavage Continue pulmonary toiletry NPO Objective: Vital Signs Date Time Temp Pulse Resp B/P (MAP) Pulse Ox O2 Delivery O2 Flow Rate FiO2 04/21/17 07:29 98.0 73 20 126/74 (91) 93 04/21/17 07:21 93 Nasal Cannula 2.00 04/21/17 06:00 66 04/21/17 05:00 68 04/21/17 04:00 67 04/21/17 03:20 98.4 70 16 135/70 (91) 93 04/21/17 03:20 93 Nasal Cannula 2.00 04/21/17 03:00 68 04/21/17 02:00 68 04/21/17 01:00 71 04/21/17 00:00 66 04/20/17 23:30 94 Nasal Cannula 2.00 04/20/17 23:30 98.7 70 18 124/56 (78) 94 04/20/17 23:00 65 04/20/17 22:00 70 04/20/17 21:00 66 04/20/17 21:00 93 Nasal Cannula 2.00 04/20/17 21:00 98.2 69 16 129/69 (89) 93 04/20/17 20:00 93 Nasal Cannula 3.00 04/20/17 20:00 66 04/20/17 19:00 70 04/20/17 18:00 67 04/20/17 17:00 64 04/20/17 16:00 64 04/20/17 15:49 66 04/20/17 15:49 98.8 66 18 102/59 (73) 94 04/20/17 15:49 94 Nasal Cannula 2.00 04/20/17 15:00 64 04/20/17 14:00 70 04/20/17 13:00 68 04/20/17 12:00 72 04/20/17 11:00 94 Nasal Cannula 2.00 04/20/17 11:00 97.9 69 18 124/65 (84) 94 04/20/17 11:00 69 04/20/17 10:00 68 04/20/17 09:00 74 04/20/17 08:00 74 Result Diagram: 04/19/17 0329 04/19/17 0329 (1) Lung cancer, upper lobe (2) S/P lobectomy of lung (3) COPD (chronic obstructive pulmonary disease) Problem Qualifiers (1) Lung cancer, upper lobe: Qualified Codes: C34.11 - Malignant neoplasm of upper lobe, right bronchus or lung Audra aBrrow MD Apr 21, 2017 07:47
[2017-04-21] MEDS: amLODIPine BESYLATE 5 MG TAB PO SCH (08:35)
[2017-04-21] MEDS: SODIUM CHLORIDE 0.9% FLUSH 10 ML FLUSH IV FLUSH SCH (08:35)
[2017-04-21] MEDS: ATENOLOL 25 MG TAB PO SCH (08:35)
[2017-04-21] MEDS ORDERED: LACTATED RINGER'S 1000 ML INJ 500 ML IV PRN (11:26)
[2017-04-21] MEDS ORDERED: RESP: RACEPINEPHRINE 2.25% 0.5 ML NEB NEB PRN (11:30)
[2017-04-21] MEDS ORDERED: CALCIUM CHLORIDE INJ 1 GM in SODIUM CHLORIDE 0.9% INJ 100 ML IV PRN (11:30)
[2017-04-21] MEDS ORDERED: ceFAZolin 2 GM PREMIX 50 ML IV SCH (11:30)
[2017-04-21] MEDS ORDERED: Post-op Orders (for Pharmacy) OTHER ONE (11:30)
[2017-04-21] MEDS ORDERED: SODIUM BICARBONATE 8.4% SOLN 50 MEQ/50 ML VIAL IV PUSH PRN ×2 (11:30)
[2017-04-21] MEDS ORDERED: ALBUMIN 5% INJ 250 ML IV PRN (11:30)
[2017-04-21] MEDS ORDERED: POTASSIUM CHLORIDE 20 MEQ CONTROLLED RELEASE TAB PO PRN ×2 (11:30)
[2017-04-21] MEDS ORDERED: SODIUM CHLORIDE 0.9% FLUSH 10 ML FLUSH IV FLUSH PRN (11:30)
[2017-04-21] MEDS ORDERED: CALCIUM CHLORIDE 10% 1 GRAM/10 ML VIAL IV PUSH PRN (11:30)
[2017-04-21] MEDS ORDERED: KETOROLAC TROMETHAMINE 30 MG/ML (IVP) VIAL IV PUSH PRN (11:30)
[2017-04-21] MEDS ORDERED: POTASSIUM CHLOR 20 MEQ PREMIX 100 ML IV PRN ×3 (11:30)
[2017-04-21] MEDS ORDERED: MAGNESIUM SULFATE INJ 2 GM in SODIUM CHLORIDE 0.9% INJ 100 ML IV PRN ×4 (11:30)
[2017-04-21] MEDS ORDERED: ACETAMINOPHEN/HYDROcodone 325 MG/5 MG TAB PO PRN (11:30)
[2017-04-21] MEDS ORDERED: DEXTROSE 50% IN WATER 50 ML VIAL(D50) IV PUSH PRN (11:30)
[2017-04-21] MEDS ORDERED: ACETAMINOPHEN 650 MG SUPP RECTAL PRN (11:30)
[2017-04-21] MEDS ORDERED: DOPamine INJ PREMIX 500 ML IV PRN (12:00)
[2017-04-21] MEDS ORDERED: ONDANSETRON HCL 4 MG/2 ML VIAL IV PUSH PRN (12:00)
[2017-04-21] MEDS ORDERED: METOPROLOL TARTRATE 5 MG/5 ML VIAL IV PUSH PRN (12:00)
[2017-04-21] MEDS ORDERED: DOBUTamine PREMIX DRIP 250 ML IV SCH (12:00)
[2017-04-21] MEDS ORDERED: ACETAMINOPHEN 325 MG TAB PO PRN (12:00)
[2017-04-21] MEDS ORDERED: INSULIN REGULAR (IV INFUSION) 100 UNITS in SODIUM CHLORIDE 0.9% INJ 99 ML IV PRN (12:00)
[2017-04-21] MEDS ORDERED: RESP: ALBUTEROL 2.5 MG/IPRATROPIUM 0.5 MG NEB (PRN) NEB (12:00)
[2017-04-21] MEDS ORDERED: ACETAMINOPHEN 1000 MG/100 ML 100 ML IV SCH (12:00)
[2017-04-21] MEDS ORDERED: hydrALAZINE HCL 20 MG/ML VIAL IV PUSH PRN (12:00)
[2017-04-21] MEDS ORDERED: PHENYLEPHRINE INJ 40 MG in DEXTROSE 5% IN WATE 500 ML INJ 496 ML IV PRN ×2 (13:00)
[2017-04-21] MEDS ORDERED: CLEVIDIPINE INJ 50 ML IV PRN (13:00)
[2017-04-21] MEDS ORDERED: NITROGLYCERIN-D5W 50 MG/250 ML 250 ML IV PRN (13:00)
[2017-04-21] MEDS ORDERED: MEPERIDINE HCL 25 MG/ML VIAL IV PUSH PRN (13:00)
[2017-04-21] MEDS ORDERED: DEXMEDETOMIDINE INJ 200 MCG in SODIUM CHLORIDE 0.9% INJ 50 ML IV PRN (13:00)
[2017-04-21] MEDS ORDERED: MORPHINE SULFATE 4 MG/ML INJ IV PUSH PRN (13:00)
[2017-04-21] MEDS ORDERED: RESP: ALBUTEROL 2.5 MG/IPRATROPIUM 0.5 MG NEB (SCH) NEB (16:00)
[2017-04-21] MEDS ORDERED: SOD PHOSPHATE/SOD BIPHOSPHATE (ADULT) ENEMA 133ML RECTAL PRN (17:00)
[2017-04-21] MEDS ORDERED: BISACODYL 10 MG SUPP RECTAL PRN (17:00)
[2017-04-21] MEDS ORDERED: RESP: ACETYLCYSTEINE 20% 10 ML NEB NEB SCH (18:00)
[2017-04-21] MEDS: DOCUSATE SODIUM 100 MG CAP PO SCH (20:32)
[2017-04-21] MEDS: ATORVASTATIN 10 MG TAB PO SCH (20:33)
[2017-04-21] MEDS ORDERED: AMIODARONE 200 MG TAB PO SCH (21:00)
[2017-04-21] MEDS ORDERED: SODIUM CHLORIDE 0.9% FLUSH 10 ML FLUSH IV FLUSH SCH (21:00)
--- NOTE | 2017-04-21 21:15 | MB ---
cc: MARITZA MCKEON DATE OF CONSULTATION 04/21/[address] Audra Barrow REASON FOR CONSULTATION Evaluation of lung collapse. HISTORY OF THE PRESENT ILLNESS Ms. Ortiz is a pleasant 77-year-old female with a history of chronic obstructive pulmonary disease. She was found to have a lung nodule. She underwent video-assisted thoracoscopy, wedge resection of the right upper nodule and right upper lobectomy. Pathology showed she has adenocarcinoma of the lung. She has invasive adenocarcinoma and she has two different morphology of the tumor . She has cough with small amount of blood in it and has shortness of breath. Her chest x-ray today shows an increased opacification of the right hemithorax. She denies any shortness of breath but she is on 1-2 liters nasal cannula maintaining good oxygen saturation. But she did cough up some blood today. LABORATORY DATA WBC count is 13.1, hemoglobin 13.2, hematocrit 39.9, MCV 93, platelet count 33.7. Sodium 139, potassium 3.7, chloride 100, CO2 31, BUN 14, creatinine 0.86. Her INR is 1.0. PAST MEDICAL HISTORY Significant for: 1. History of COPD. 2. Hypertension. 3. Hypothyroidism. 4. Vocal cord surgery for polyps. SOCIAL HISTORY She has a long history of smoking 1-1/2 packs of cigarettes a day. No alcohol abuse. FAMILY HISTORY She lives alone. She worked for a program for dental hygienists. REVIEW OF SYSTEMS Normally she is up, around and active. Has lost some weight. Has a history of smoking. No DVT or pulmonary embolism. PHYSICAL EXAMINATION GENERAL: Thin-built elderly female not in acute distress. VITAL SIGNS: 120/69, heart rate 70, respiration 19, temperature 98.3, oxygen saturation 93% on 2 liters nasal cannula. HEENT: Pupils are equal and reactive to light. She had left eye cataract surgery done. Oral mucosa and nasal mucosa normal. NECK: Supple. JVP not raised. CHEST: There is a question of markedly decreased breath sounds on the right side. CARDIOVASCULAR: S1-S2 normal. ABDOMEN: Soft. Nondistended. Bowel sounds present. EXTREMITIES: No edema. DRIED FRUIT WASHER: Alert and oriented times three. No focal deficit. IMPRESSION 1. Increased opacity in the right lung likely from the mucous plugging. She is on 2 liters nasal cannula. 2. COPD. 3. Mild hemoptysis. 4. History of recent VATS and right upper lobectomy. 5. Invasive adenocarcinoma of the lung. She has two separate primaries. PLAN I discussed with the patient and her daughter at the bedside she will need bronchoscopy. I explained to her the procedure and the complications including complication of the anesthesia, pneumothorax requiring chest tube, bleeding complication, injury to the blood vessels, lungs, nerves, arrhythmia, hypoxia which she understands well and wants to proceed with it. We will schedule her for bronchoscopy for tomorrow. I have encouraged her to use incentive spirometry and Acapella. Mucomyst nebulizer treatment. Further treatment will depend on the course in the hospital. Thank you Dr. Audra Barrow for this consultation. MD FELY Mahoney/NICOLE /5:34 PM /8:17 PM DANDY
[2017-04-21] MEDS: RESP: ACETYLCYSTEINE 20% 4 ML NEB NEB SCH (23:31)
[2017-04-22] VITALS (16 sets, daily range): BP systolic 126–150; BP diastolic 62–79; PULSE 61–69; RESP 17–18; TEMP 98.1–98.4; O2SAT 95–96
[2017-04-22] MEDS: RESP: ACETYLCYSTEINE 20% 4 ML NEB NEB SCH ×3 (03:29→11:36)
--- NOTE | 2017-04-22 05:07 | RADRPT ---
EXAM DATE/TIME: 04/22/2017 04:12 [facility] COMPARISON: CHEST SINGLE AP, April 21, 2017, 4:47. INDICATIONS : Short of breath. MEDICAL HISTORY : Hypertension. renal insufficiency SURGICAL HISTORY : None. ENCOUNTER: Subsequent ACUITY: 1 week PAIN SCORE: 0/10 LOCATION: Bilateral chest FINDINGS: There is marked improved aeration of the right hemithorax. A moderate right effusion and consolidatio n remain. Patchy left basilar atelectasis. Cardiomegaly. CONCLUSION: Improved aeration on the right. Abel Orozco MD on April 22, 2017 at 5:04 Board Certified Radiologist. This report was verified electronically.
[2017-04-22] MEDS: LEVOTHYROXINE SODIUM 75 MCG TAB PO SCH (05:59)
[2017-04-22] MEDS ORDERED: PANTOPRAZOLE SOD 40 MG DELAYED RELEASE TAB PO SCH (06:00)
[2017-04-22] MEDS ORDERED: ASPIRIN 81 MG CHEW TAB PO SCH (09:00)
[2017-04-22] MEDS ORDERED: CLOPIDOGREL 75 MG TAB PO SCH (09:00)
[2017-04-22] MEDS: DOCUSATE SODIUM 100 MG CAP PO SCH (09:01)
[2017-04-22] MEDS: ATENOLOL 25 MG TAB PO SCH (09:01)
[2017-04-22] MEDS: amLODIPine BESYLATE 5 MG TAB PO SCH (09:01)
--- NOTE | 2017-04-22 11:07 | HHI.DS ---
Discharge Summary Admission Date Apr 15, 2017 at 10:56 Discharge Date: Apr 22, 2017 Admitting Diagnosis 1. Right Lung Nodule 2. COPD 3. Chronic Kidney Disease 4. Chronic Nicotine Use (1) S/P lobectomy of lung Diagnosis: Secondary ICD Codes: Z90.2 - Acquired absence of lung [part of] (2) COPD (chronic obstructive pulmonary disease) Diagnosis: Principal ICD Codes: J44.9 - Chronic obstructive pulmonary disease, unspecified Status: Chronic (3) Lung cancer, upper lobe Diagnosis: Principal ICD Codes: C34.10 - Malignant neoplasm of upper lobe, unspecified bronchus or lung (4) HTN (hypertension) Diagnosis: Principal ICD Codes: I10 - Essential (primary) hypertension Status: Chronic (5) Hypothyroidism Diagnosis: Principal ICD Codes: E03.9 - Hypothyroidism, unspecified Status: Chronic Procedures 1. Right Video Assisted Thoracoscopsy (VATS) 04/15 2. Wedge Resection RUL Nodule 3. Right Posterolateral Muscle Sparing Thoracotomy 4. Right Upper Lobectomy 5. Mediastinal Lymph Node Dissection 6. Lysis of Adhesions 7. Intercostal Nerve Block Brief History Ms. Ortiz is a pleasant 77-year-old female with a history of chronic obstructive pulmonary disease. She was found to have a lung nodule. She underwent video-assisted thoracoscopy, wedge resection of the right upper nodule and right upper lobectomy. Pathology showed she has adenocarcinoma #1- LUNG, RIGHT UPPER LOBE, WEDGE RESECTION: - INVASIVE, WELL-DIFFERENTIATED ADENOCARCINOMA WITH PROMINENT LEPIDIC GROWTH. PATHOLOGIC STAGE CLASSIFICATION (pTNM, AJCC 8th Edition): TNM DESCRIPTOR: m (MULTIPLE PRIMARY TUMORS). PRIMARY TUMOR: pT1a. REGIONAL LYMPH NODES: pN0. #2- LUNG, RIGHT UPPER LOBE, WEDGE RESECTION: - INVASIVE, POORLY DIFFERENTIATED ADENOCARCINOMA. - SEE COMMENT AND TUMOR SUMMARY #2 BELOW. PATHOLOGIC STAGE CLASSIFICATION (pTNM, AJCC 8th Edition): TNM DESCRIPTOR: m (MULTIPLE PRIMARY TUMORS). PRIMARY TUMOR: pT1a. REGIONAL LYMPH NODES: pN0. CBC/BMP: 04/19/17 0329 04/19/17 0329 Imaging Last Impressions Chest X-Ray 04/22/17 0600 Signed Impressions: Service Date/Time: Saturday, April 22, 2017 04:12 - CONCLUSION: Improved aeration on the right. Abel Orozco MD PE at Discharge GENERAL: A&O x 3 SKIN: Warm and dry./ incision intact right postero lateral chest wall HEAD: Normocephalic. EYES: No scleral icterus. No injection or drainage. NECK: Supple, trachea midline. No JVD or lymphadenopathy. CARDIOVASCULAR: Regular rate and rhythm without murmurs, gallops, or rubs. RESPIRATORY: Breath sounds equal bilaterally. No accessory muscle use. slightly diminished right lower lobe GASTROINTESTINAL: Abdomen soft, non-tender, nondistended. MUSCULOSKELETAL: No cyanosis, or edema. BACK: Nontender without obvious deformity. No CVA tenderness. Hospital Course 04/16 Doing well Incisional pain No air-leak Likely D/C CT tomorrow Discharge planning Pathology pending 04/17 On O2. Weaning as tolerated Gentle diuresis Remove CT today Likely D/C home in am Pathology pending 04/18 Weaning oxygen as tolerated Ambulate CXR and labs in am 04/19 Doing well clinically Still on Oxygen. Weaning as tolerated. CXR today K replacement 04/20 Right Lung atelectasis on CXR Needs aggressive pulmonary toiletry and ambulation Repeat CXR in am, if no improvement may need bronchoscopy Pathology d/w pt and daughter 04/21 Right lung collapse Will need bronchoscopy with lavage Continue pulmonary toiletry NPO 02/19 cxr shows improved aeration of right lung now on room air bronchoscopy cancelled stable for discharge encouraged to continue IS at home Pt Condition on Discharge: Good Discharge Disposition: Disch w/ Home Health Serv Discharge Instructions DIET: Follow Instructions for: As Tolerated, No Restrictions Activities you can perform: Full Weight Bearing, Shower Only-No Bath Activities to avoid: Driving Additional Activity Instructio: no lifting > 8 lbs or gallon of milk Follow up Referrals: Appointment for Follow Up - 2 Weeks with Maci Flores Oncology/Hematology - 2 Weeks with Sacha Whitney MD PCP Follow-up - 3 Weeks with Do Jonh Moreno MD Pulmonology - 4 Weeks with Eugenio Zaragoza MD YOUR APPOINTMENT IS AT THIS OFFICE LOCATION: [address] [place] [address] [address] [address] Phone: New Medications: Docusate Calcium (Sm Stool Softener) 240 Mg Cap 240 MG PO HS for Constipation for 14 Days, CAP Hydrocodone/Acetaminophen (Hydrocodone-Acetamin 5-325 mg) 5 Mg-325 Mg Tablet 1 TAB PO Q3H PRN for PAIN SCALE 3 TO 5, #60 TAB Continued Medications: Amlodipine (Amlodipine) 2.5 Mg Tab 2.5 MG PO DAILY for Blood Pressure Management, #30 TAB 0 Refills Atenolol (Atenolol) 25 Mg Tab 25 MG PO DAILY for Blood Pressure Management, #30 TAB Atorvastatin (Atorvastatin) 10 Mg Tab 10 MG PO HS for Cholesterol Management, #30 TAB 0 Refills Levothyroxine (Levothyroxine) 75 Mcg Tab 75 MCG PO DAILY for Thyroid, #30 TAB 0 Refills Maci Flores Apr 22, 2017 11:07
== END 2017-04-22 14:10 | disposition home health service (06) | DRG 164 ==
LOC: HSDC 05:33 → EDSTATUS 07:30 → HSDI 10:56 → HCPC 12:45
PROVIDERS: ADMIT Thoracic Surgery (Cardiothoracic Vascular Surgery); ATTEND Thoracic Surgery (Cardiothoracic Vascular Surgery)
PROC: 07B74ZX Excision of Thorax Lymphatic, Percutaneous Endoscopic Approach, Diagnostic (ICD-10-PCS; 2017-04-15)
PROC: 0BBC4ZZ Excision of Right Upper Lung Lobe, Percutaneous Endoscopic Approach (ICD-10-PCS; 2017-04-15)
PROC: 3E0T3BZ Introduction of Anesthetic Agent into Peripheral Nerves and Plexi, Percutaneous Approach (ICD-10-PCS; 2017-04-15)
PROC: 0BTC4ZZ Resection of Right Upper Lung Lobe, Percutaneous Endoscopic Approach (ICD-10-PCS; principal; 2017-04-15 07:27)
DX: C34.11 Malignant neoplasm of upper lobe, right bronchus or lung (principal); T17.890A Other foreign object in other parts of respiratory tract causing asphyxiation, initial encounter; R04.2 Hemoptysis; J44.9 Chronic obstructive pulmonary disease, unspecified; J98.19 Other pulmonary collapse; E03.9 Hypothyroidism, unspecified; F17.200 Nicotine dependence, unspecified, uncomplicated; I12.9 Hypertensive chronic kidney disease with stage 1 through stage 4 chronic kidney disease, or unspecified chronic kidney disease; N18.9 Chronic kidney disease, unspecified; Z53.8 Procedure and treatment not carried out for other reasons
CPT/HCPCS: 71045; 71046; 80048; 85025; 85027; 86850; 86900; 86901; 86920; 88307; 88309; 88331; 88341; 88342; 94150; 94618; 94640; 94664; 94667; 94668; C9290; J0131; J0330; J1100; J1885; J1940; J2250; J2270; J2370; J2405; J2710; J3010; J3370; J7040; J7050; J7120; J7613

== ENCOUNTER 2017-07-02 07:50 | Emergency (ER) | payer OTHER ==
[~2017-07-02] VITALS: Ht 162.6 cm; Wt 52.0 kg
[~2017-07-02 07:50] MED LIST changes: +DOCU1CAP26 PO; +HYDR-3516 PO
[2017-07-02 07:51] VITALS: BP 159/77; PULSE 69; RESP 16; TEMP 97.6; O2SAT 99
[2017-07-02] MEDS ORDERED: ONDANSETRON HCL 4 MG/2 ML VIAL IV PUSH ONE (08:15)
[2017-07-02] MEDS ORDERED: MECLIZINE HCL 25 MG TAB PO ONE (08:15)
[2017-07-02] MEDS ORDERED: SODIUM CHLOR 0.9% 1000 ML INJ 1,000 ML IV ONE (08:15)
--- NOTE | 2017-07-02 08:22 | PD ---
HPI Chief Complaint: Dizziness Time Seen by Provider: 08:14 Travel History International Travel<30 days: No Contact w/Intl Traveler<30days: No Traveled to known affect area: No History of Present Illness HPI This 77-year-old female is complaining of severe vertigo. This started on Friday and has been persistent. She has had nausea and vomiting. She has not been able to eat anything in 2 days. She had a mild episode about 3 weeks ago. She has had quite severe vertigo in the past and the fact has been admitted to the hospital for it. She had a thoracotomy in April which showed poorly differentiated adenocarcinoma of the lung. The surgical margins were clear and it was thought that she could be observed. She did have an MRI of the brain in February 2016 which was normal. She is having a pressure in her head. 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 CORD) Musculoskeletal: Yes (OA) Neurologic: No Psychiatric: No Reproductive: Yes (hx of POOR KIDNEY FUNCTION) Respiratory: Yes Thyroid Disease: Yes (HYPOTHYROIDISM) Tetanus Vaccination: > 5 Years Influenza Vaccination: Yes ?: Not Menopausal: Yes : 2 Para: 2 Past Surgical History Abdominal Surgery: No AICD: No Cardiac Surgery: No Ear Surgery: No Endocrine Surgery: No Eye Surgery: No Genitourinary Surgery: No Gynecologic Surgery: No Joint Replacement: No Oral Surgery: Yes (TONSILLECTOMY) Pacemaker: No Thoracic Surgery: Yes (right upper lobecetomy r/t cancer) Other Surgery: Yes (POLYPS ON VOCAL CORDS 2006) Social History Alcohol Use: No Tobacco Use: No (quit 04/2017 smoked cigs for 60+yrs smoked 1 ppd) Substance Use: No Allergies-Medications (Allergen,Severity, Reaction): Coded Allergies: fire ant (Unverified Allergy, Severe, Anaphylaxis, 07/02/17) hydrochlorothiazide (Unverified Allergy, Severe, 07/02/17) renal failure triamterene (Unverified Allergy, Severe, 07/02/17) renal failure amoxicillin (Verified Allergy, Unknown, Rash, 07/02/17) penicillin G (Unverified Allergy, Unknown, 07/02/17) hydroxyzine (Unverified Adverse Reaction, Intermediate, Hallucinations, ) Reported Meds & Prescriptions Reported Meds & Active Scripts Active Reported Atorvastatin (Atorvastatin Calcium) 10 Mg Tab 10 Mg PO HS Atenolol 25 Mg Tab 25 Mg PO DAILY Amlodipine (Amlodipine Besylate) 2.5 Mg Tab 2.5 Mg PO DAILY Levothyroxine (Levothyroxine Sodium) 75 Mcg Tab 75 Mcg PO DAILY Review of Systems General / Constitutional: No: Fever, Chills Eyes: No: Diploplia HENT: Positive: Headaches, Vertigo, No: Lightheadedness Cardiovascular: No: Chest Pain or Discomfort, Palpitations Respiratory: No: Cough Gastrointestinal: Positive: Nausea, Vomiting Genitourinary: No: Urgency, Frequency Musculoskeletal: No: Myalgias, Arthralgias Skin: No Rash Neurologic: Positive: Weakness, Dizziness Endocrine: No: Heat Intolerance Hematologic/Lymphatic: No: Easy Bruising Physical Exam Narrative GENERAL: Frail elderly female SKIN: Focused skin assessment warm/dry. HEAD: Atraumatic. Normocephalic. EYES: Pupils equal and round. No scleral icterus. No injection or drainage. There is no nystagmus rightward gaze ENT: No nasal bleeding or discharge. Mucous membranes pink and moist. NECK: Trachea midline. No JVD. CARDIOVASCULAR: Regular rate and rhythm. No murmur appreciated. RESPIRATORY: No accessory muscle use. Clear to auscultation. Breath sounds equal bilaterally. GASTROINTESTINAL: Abdomen soft, non-tender, nondistended. Hepatic and splenic margins not palpable. MUSCULOSKELETAL: No obvious deformities. No clubbing. No cyanosis. No edema. NEUROLOGICAL: Awake and alert. No obvious cranial nerve deficits. Motor grossly within normal limits. Normal speech. PSYCHIATRIC: Appropriate mood and affect; insight and judgment normal. Data Data Last Documented VS Vital Signs Date Time Temp Pulse Resp B/P (MAP) Pulse Ox O2 Delivery O2 Flow Rate FiO2 07/02/17 11:13 69 16 148/88 (108) 97 Room Air 07/02/17 07:51 97.6 Orders Orders Electrocardiogram (07/02/17 08:14) Complete Blood Count With Diff (07/02/17 08:14) Comprehensive Metabolic Panel (07/02/17 08:14) Sodium Chlor 0.9% 1000 Ml Inj (Ns 1000 M (07/02/17 08:15) Ondansetron Inj (Zofran Inj) (07/02/17 08:15) Meclizine (Antivert) (07/02/17 08:15) Mri Brain W&W/O Contrast (07/02/17 08:15) Gadodiamide Pf Inj (Omniscan Pf Inj) (07/02/17 10:25) Labs Laboratory Tests Test 07/02/17 08:35 White Blood Count 9.0 TH/MM3 Red Blood Count 5.20 MIL/MM3 Hemoglobin 15.8 GM/DL Hematocrit 47.2 % Mean Corpuscular Volume 90.9 FL Mean Corpuscular Hemoglobin 30.5 PG Mean Corpuscular Hemoglobin Concent 33.5 % Red Cell Distribution Width 13.9 % Platelet Count 332 TH/MM3 Mean Platelet Volume 8.2 FL Neutrophils (%) (Auto) 71.2 % Lymphocytes (%) (Auto) 19.6 % Monocytes (%) (Auto) 7.0 % Eosinophils (%) (Auto) 1.1 % Basophils (%) (Auto) 1.1 % Neutrophils # (Auto) 6.4 TH/MM3 Lymphocytes # (Auto) 1.8 TH/MM3 Monocytes # (Auto) 0.6 TH/MM3 Eosinophils # (Auto) 0.1 TH/MM3 Basophils # (Auto) 0.1 TH/MM3 CBC Comment DIFF FINAL Differential Comment Blood Urea Nitrogen 13 MG/DL Creatinine 0.90 MG/DL Random Glucose 118 MG/DL Total Protein 7.6 GM/DL Albumin 3.8 GM/DL Calcium Level 9.3 MG/DL Alkaline Phosphatase 81 U/L Aspartate Amino Transf (AST/SGOT) 15 U/L Alanine Aminotransferase (ALT/SGPT) 27 U/L Total Bilirubin 0.7 MG/DL Sodium Level 141 MEQ/L Potassium Level 4.3 MEQ/L Chloride Level 108 MEQ/L Carbon Dioxide Level 27.2 MEQ/L Anion Gap 6 MEQ/L Estimat Glomerular Filtration Rate 61 ML/MIN MDM Medical Decision Making Medical Screen Exam Complete: Yes Emergency Medical Condition: Yes Medical Record Reviewed: Yes Differential Diagnosis Differential includes vertigo, metastatic disease Narrative Course Was concerned this could be a manifestation of her lung cancer and have ordered an MRI which has been read as negative. The patient has been given Zofran and meclizine with some improvement. Diagnosis Primary Impression: Acute onset of severe vertigo Scripts Ondansetron Odt (Zofran Odt) 4 Mg Tab 4 MG SL Q6HR Y for Nausea/Vomiting, #10 TAB 0 Refills Prov: Matthias Kaufman MD 07/02/17 Meclizine (Meclizine) 25 Mg Tab 25 MG PO QID Y for VERTIGO for 30 Days, TAB 0 Refills Prov: Matthias Kaufman MD 07/02/17 Disposition: 01 DISCHARGE HOME Condition: Stable Matthias Kaufman MD Jul 02, 2017 08:22
[2017-07-02 08:53] LABS: CHLORIDE 108 MEQ/L (98-107); SODIUM (NA) 141 MEQ/L (136-145)
[2017-07-02 08:57] VITALS: BP 161/102; PULSE 67; RESP 16; O2SAT 99
[2017-07-02 08:57] LABS: ALBUMIN 3.8 GM/DL (3.4-5.0); BICARBONATE 27.2 MEQ/L (21.0-32.0); BLOOD UREA NITROGEN 13 MG/DL (7-18); CALCIUM 9.3 MG/DL (8.5-10.1); GLUCOSE,RANDOM 118 MG/DL (74-106)
[2017-07-02 09:00] LABS: ALT (GPT) 27 U/L (10-53); AST (GOT) 15 U/L (15-37); GLOMERULAR FILTRATION RATE 61 ML/MIN (>89)
[2017-07-02 09:02] LABS: TOTAL BILIRUBIN ADULT 0.7 MG/DL (0.2-1.0); TOTAL PROTEIN 7.6 GM/DL (6.4-8.2)
[2017-07-02 09:03] LABS: ALKALINE PHOSPHATASE 81 U/L (45-117)
[2017-07-02 09:05] LABS: AUTOMATED NEUTROPHIL # 6.4 TH/MM3 (1.8-7.7); BASOPHIL # 0.1 TH/MM3 (0-0.2); BASOPHIL % 1.1 % (0.0-2.0); EOSINOPHIL # 0.1 TH/MM3 (0-0.4); EOSINOPHIL % 1.1 % (0.0-4.0); HEMATOCRIT 47.2 % (35.0-46.0); HEMOGLOBIN 15.8 GM/DL (11.6-15.3); LYMPH % 19.6 % (9.0-44.0); LYMPHOCYTE # 1.8 TH/MM3 (1.0-4.8); MEAN CELL VOLUME 90.9 FL (80.0-100.0); MEAN CORPUSCULAR HEMOGLOBIN 30.5 PG (27.0-34.0); MEAN CORPUSCULAR HGB CONC 33.5 % (32.0-36.0); MEAN PLATELET VOLUME 8.2 FL (7.0-11.0); MONOCYTE # 0.6 TH/MM3 (0-0.9); NEUT % 71.2 % (16.0-70.0); PLATELET COUNT 332 TH/MM3 (150-450); RED CELL DISTRIBUTION WIDTH 13.9 % (11.6-17.2)
[2017-07-02 09:43] VITALS: BP_SYST 164; BP_SYST 169; BP_DIAS 115; BP_DIAS 90; PULSE 61; RESP 16; O2SAT 99
[2017-07-02] MEDS ORDERED: GADODIAMIDE PF 287 MG/ML 10 ML VIAL (for RAD MRI) IVCONTRAST ONE (10:25)
[2017-07-02 11:13] VITALS: BP 148/88; PULSE 69; RESP 16; O2SAT 97
--- NOTE | 2017-07-02 11:28 | RADRPT ---
EXAM DATE/TIME: 07/02/2017 10:24 [facility] COMPARISON: MRI BRAIN W/O CONTRAST, February 14, 2016, 15:05. INDICATIONS : Dizziness. History of lung cancer. Tremors. CONTRAST: 10 cc Omniscan (gadodiamide) IV MEDICAL HISTORY : Carcinoma, lung. Hypothyroidism. SURGICAL HISTORY : Lobectomy. ENCOUNTER: Subsequent ACUITY: 1 day PAIN SCORE: 0/10 LOCATION: head. TECHNIQUE: Multiplanar, multisequence MRI of the brain was performed both prior to and following the administrat ion of paramagnetic contrast. FINDINGS: CEREBRUM: The ventricles are normal for age. No evidence of midline shift, mass lesion, hemorrhage or acute in farction. No extraaxial fluid collections are seen. The pituitary gland and suprasellar cistern are normal in configuration. WHITE MATTER: Minimal, stable periventricular small vessel ischemic demyelination. POSTERIOR FOSSA: The cerebellum and brainstem are intact. The 4th ventricle is midline. The cerebellopontine angle is unremarkable. The cerebellar tonsils are normal in position. DIFFUSION IMAGING: No focal areas of restricted diffusion are seen. No evidence of acute infarction. EXTRACRANIAL: The visualized portions of the orbits and paranasal sinuses are unremarkable. POST-CONTRAST: No abnormal areas of parenchymal or dural enhancement. No evidence of blood-brain barrier breakdown. CONCLUSION: 1. Minimal chronic changes of periventricular small vessel ischemic demyelination, unchanged from vu or. 2. Nothing acute. Horace Armstrong MD on July 02, 2017 at 11:22 Board Certified Radiologist. This report was verified electronically.
[2017-07-02] MEDS ORDERED: ZOFR4TAB3 SL (12:18)
[2017-07-02] MEDS ORDERED: MECL-62 PO (12:18)
--- NOTE | 2017-07-02 12:18 | EKG ---
Date Performed: 07/02/2017 Time Performed: 08:41:53 PTAGE: 77 years EKG: Sinus rhythm NORMAL ECG PREVIOUS TRACING : 02/14/2016 10.27 DOCTOR: Derek Burton Interpretating Date/Time 07/02/2017 12:17:59
[2017-07-02 12:34] VITALS: BP_SYST 88
== END 2017-07-02 12:35 | disposition home or self-care (01) ==
LOC: PHED 07:50
DX: C34.91 Malignant neoplasm of unspecified part of right bronchus or lung (principal); R42 Dizziness and giddiness; E03.9 Hypothyroidism, unspecified; E78.00 Pure hypercholesterolemia, unspecified; I10 Essential (primary) hypertension; Z87.891 Personal history of nicotine dependence
CPT/HCPCS: 70553; 80053; 85025; 93005; 96361; 96374; 99285; A9579; J2405; J7030